=== PATIENT | female | born 1970 | race Caucasian/White ===

== ENCOUNTER → 2018-10-23 | Outpatient (CLI) | payer OTHER ==
[~2018-10-23] MED LIST: ALPR1T PO; CEPH500C PO; CPR250T PO; CYCL10TA9 PO; ESTR1TAB24 PO; HYDR-3456 PO; HYDR-91 PO; MDR10T PO; NAPR-243 PO; NAPR550T PO; OMEP20CA6; ONDAN4ODT PO; OXYC-12 PO; PRD20T PO; VIT1TABL57
--- NOTE | 2018-10-23 10:00 | Diagnostic Imaging Report ---
CLINICAL INDICATION: Patient with chronic back pain and bilateral knee pain. Patient has history of neuropathy. EXAM: X-ray of the right knee, 2 views. COMPARISON: None. FINDINGS: There is no acute fracture or dislocation. A small chronic calcification is seen posterior to the knee which may represent a loose body or soft tissue calcification. A suspected fabella is seen posterior to the knee. There is a small patellar spur involving the superior facet region. There is minimal spurring of the medial compartment. There is mild medial compartment narrowing. There is no significant knee effusion. IMPRESSION: 1. Minimal degenerative changes of the right knee. 2. Possible soft tissue calcifications or loose body involving the posterior aspect of the knee. Dictated by: Dictated on workstation # [id number]
--- NOTE | 2018-10-23 17:21 | Diagnostic Imaging Report ---
INDICATION: Back pain. AP and lateral views of the thoracic spine are obtained. The thoracic vertebrae are normal in height and alignment. There are small osteophytes throughout the wvr-qg-frbis thoracic spine compatible with diffuse degenerative change. There is no compression deformity or subluxation. IMPRESSION: Diffuse degenerative findings in the thoracic spine without acute abnormality. The appearance has not changed from 07/05/2011. Dictated by: Dictated on workstation # [id number]
== END ==
LOC: RAD 09:25
PROVIDERS: ATTEND Family Medicine
DX: Z02.71 Encounter for disability determination (principal); M25.78 Osteophyte, vertebrae; M25.562 Pain in left knee; M25.561 Pain in right knee
CPT/HCPCS: 72070; 73560

== ENCOUNTER 2019-03-02 18:11 | Emergency (ER) | payer MEDICAID, OTHER ==
[~2019-03-02] VITALS: Ht 160 cm; Wt 113.0 kg
--- NOTE | 2019-03-02 19:48 | ED Lower Extremity ---
General Chief Complaint: Lower Extremity Stated Complaint: L LEG BRUISE/KNOT Nursing Triage Note: COMPLAINS OF A BRUISE AND A KNOT ON LEFT LEG. DENIES INJURY. Nursing Sepsis Screen: No Definite Risk Source: patient Exam Limitations: no limitations History of Present Illness Date Seen by Provider: Mar 02, 2019 Time Seen by Provider: 19:47 Initial Comments 48-year-old female patient presents with complaints of bruising to the left lower extremity. Patient denies known injury. She does have a history of neuropathy bilaterally and superficial varicose veins bilaterally and states that it is not uncommon for her to notice bruises without known cause. Reports tenderness at the bruise site only. Onset: yesterday Pain/Injury Location: left other (lateral knee and proximal calf) Method of Injury: unknown Modifying Factors: Worse With Other (tender with palpation) Allergies and Home Medications Allergies Coded Allergies: No Known Drug Allergies (Verified , 10/05/08) Home Medications Alprazolam 1 Mg Tablet, 1 TAB PO HS PRN, (Reported) Cephalexin Monohydrate 500 Mg Capsule, 1 EACH PO QID, (Reported) Ciprofloxacin Hcl 250 Mg Tablet, 1 TAB PO BID, (Reported) Estradiol 1 Mg Tablet, 1 MG PO DAILY, (Reported) Hydrocodone/Acetaminophen 1 Each Tablet, 1 EACH PO Q4H PRN, (Reported) FOR PAIN Ondansetron Hcl 4 Mg Tab, 4 MG PO Q4H, (Reported) Patient Home Medication List Home Medication List Reviewed: Yes Review of Systems Constitutional: no symptoms reported Respiratory: No cough, No dyspnea on exertion, No orthopnea, No short of breath, No stridor, No wheezing Cardiovascular: No chest pain, No edema, No palpitations Gastrointestinal: no symptoms reported Musculoskeletal: see HPI Skin: see HPI Psychiatric/Neurological: Pre-Existing Deficit (neuropathy bilaterally) All Other Systems Reviewed Negative Unless Noted: Yes (Negative excepted noted.) Past Yuvzfaa-Shrnkn-Abmzuz Hx Past Med/Social Hx: Reviewed Nursing Past Med/Soc Hx Patient Social History Alcohol Use: Denies Use Recreational Drug Use: No Smoking Status: Current Everyday Smoker Recent Foreign Travel: No Contact w/Someone Who Travel: No Recent Infectious Disease Expo: No Recent Hopitalizations: Yes (CHILDBIRTH, SEBASTIEN) Past Medical History Surgeries: Yes (SEBASTIEN with BSO 1-3-13, ) Respiratory: No Cardiac: No Neurological: Yes Neuropathy Reproductive Disorders: Yes (FIBROIDS, HEAVY BLEEDING) [employer] History: Hysterectomy Gastrointestinal: No Musculoskeletal: No Endocrine: No Cancer: No Psychosocial: Yes Anxiety Integumentary: No Blood Disorders: No Family Medical History Reviewed Nursing Family Hx No Pertinent Family Hx (denies family history of bleeding disorders or clotting disorders) Physical Exam Vital Signs Vital Signs - First Documented 03/02/19 18:25 Temp 36.7 Pulse 82 Resp 16 B/P (MAP) 133/89 (104) Pulse Ox 98 O2 Delivery Room Air Capillary Refill : Less Than 3 Seconds Height, Weight, BMI Height: '" Weight: lbs. oz. kg; 44.00 BMI Method:Stated General Appearance: WD/WN, no apparent distress Cardiovascular: normal peripheral pulses, regular rate, rhythm, no edema, no gallop, no murmur Respiratory: lungs clear, normal breath sounds, no respiratory distress, no accessory muscle use Hips: bilateral hip non-tender, bilateral hip normal inspection, bilateral hip normal range of motion, bilateral hip no evidence of injury Legs: right leg non-tender; bilateral leg normal range of motion; right leg no evidence of injury; left leg ecchymosis (left proximal lateral calf (see images) ), left leg soft tissue tenderness (left proximal lateral calf (see images)); bilateral leg other (multiple spider varicosities to the bilat lower extremities) Knees: right knee non-tender, right knee normal inspection; bilateral knee normal range of motion; right knee no evidence of injury; left knee ecchymosis (left lateral knee (see images)), left knee soft tissue tenderness (left lateral knee at the site of the ecchymosis) Ankles: bilateral ankle non-tender, bilateral ankle normal inspection, bilateral ankle normal range of motion, bilateral ankle no evidence of injury Feet: bilateral foot non-tender, bilateral foot normal inspection, bilateral foot normal range of motion, bilateral foot no evidence of injury Neurologic/Tendon: normal sensation, normal motor functions, normal tendon functions, responds to pain, no evidence tendon injury Neurologic/Psychiatric: alert, normal mood/affect, oriented x 3 Skin: normal color, warm/dry, ecchymosis (see knee and leg exam above.) Progress/Results/Core Measures Results/Orders Vital Signs/I&O 03/02/19 18:25 Temp 36.7 Pulse 82 Resp 16 B/P (MAP) 133/89 (104) Pulse Ox 98 O2 Delivery Room Air Blood Pressure Mean: 104 Departure Impression Primary Impression: Contusion of leg, left, multiple sites Qualified Codes: S80.12XA - Contusion of left lower leg, initial encounter Additional Impression: Varicose veins of both lower extremities Qualified Codes: I83.93 - Asymptomatic varicose veins of bilateral lower extremities Disposition: 01 HOME, SELF-CARE Condition: Improved Departure-Patient Inst. Decision time for Depature: 20:12 Referrals: [facility]/RODNEY Meza Patient Instructions: Contusion (DC), Varicose Veins (DC) Add. Discharge Instructions: All discharge instructions reviewed with patient and/or family. Voiced understanding. Continue usual home medications. Elevate the left lower extremity on pillows. Ice pack for 20 minute intervals as needed. Nino wrap as instructed. Follow-up with Priti Meza at [facility] for recheck as an outpatient. Return to the emergency department for worsened symptoms or any other concerns. DAGOBERTO STOVER Mar 02, 2019 19:47
[2019-03-02 20:32] VITALS: BP 128/84
== END 2019-03-02 20:33 | disposition home or self-care (01) ==
LOC: EDUNIT# 18:11 → ER 18:13
DX: S80.12XA Contusion of left lower leg, initial encounter (principal); I83.93 Asymptomatic varicose veins of bilateral lower extremities; G62.9 Polyneuropathy, unspecified; F41.9 Anxiety disorder, unspecified; F17.200 Nicotine dependence, unspecified, uncomplicated; Z79.52 Long term (current) use of systemic steroids; Z90.710 Acquired absence of both cervix and uterus; Z90.722 Acquired absence of ovaries, bilateral; X58.XXXA Exposure to other specified factors, initial encounter
CPT/HCPCS: 99281

== ENCOUNTER 2019-07-22 16:41 | Emergency (ER) | payer MEDICAID ==
[~2019-07-22] VITALS: Ht 160 cm; Wt 115.0 kg
--- NOTE | 2019-07-22 16:53 | ED Fall/Injury ---
General Stated Complaint: FALL Source: patient Exam Limitations: no limitations History of Present Illness Date Seen by Provider: July 22, 2019 Time Seen by Provider: 16:40 Initial Comments Patient presents ER by EMS from home with chief complaint of a fall, tripping over a stump in her own front yard. She did not strike her head nor lose consciousness. She's not on blood thinners aspirin or Plavix. She is having pain mostly in her right upper leg between the hip and knee. She says long she does not move her knee does not hurt but if she moves it becomes very painful. She is also having some pain in her right ankle and left hand. She has abrasions on her left face and abrasions on her left knee. She denies nausea, cough, shortness of breath fever chills diarrhea. No bright previous history of back or joint pain/replacement. She follows with Priti Meza at [facility]. She takes blood pressure medications and mood medicines. She says she has a prescription for hydrocodone she can use as necessary for history of neuropathy but she does not use it very frequently. She says her last dose was about for 5 days ago. She does not want anything for pain at this time. EMS established a IV in her left hand and placed her in a c-collar. Allergies and Home Medications Allergies Coded Allergies: No Known Drug Allergies (Verified , 10/05/08) Home Medications Alprazolam 1 Mg Tablet, 1 TAB PO HS PRN, (Reported) Cephalexin Monohydrate 500 Mg Capsule, 1 EACH PO QID, (Reported) Ciprofloxacin Hcl 250 Mg Tablet, 1 TAB PO BID, (Reported) Estradiol 1 Mg Tablet, 1 MG PO DAILY, (Reported) Hydrocodone/Acetaminophen 1 Each Tablet, 1 EACH PO Q4H PRN, (Reported) FOR PAIN Ondansetron Hcl 4 Mg Tab, 4 MG PO Q4H, (Reported) Patient Home Medication List Home Medication List Reviewed: Yes Review of Systems Review of Systems Constitutional: No chills, No diaphoresis Eyes: Denies Blindness, Denies Drainage Ears, Nose, Mouth, Throat: denies ear pain, denies ear discharge Respiratory: No cough, No short of breath Cardiovascular: No edema, No syncope, No vascular heart diseas Gastrointestinal: No abdominal pain, No constipation, No diarrhea Genitourinary: No discharge, No dysuria Musculoskeletal: see HPI; No back pain; joint pain Skin: see HPI Psychiatric/Neurological: Denies Anxiety, Denies Depressed Past Ttcrsju-Lasvuz-Hhdqsn Hx Patient Social History Alcohol Use: Denies Use Recreational Drug Use: No Smoking Status: Current Everyday Smoker Type Used: Cigarettes Recent Hopitalizations: Yes (CHILDBIRTH, SEBASTIEN) Past Medical History Surgeries: Yes (SEBASTIEN with BSO 1-3-13, ) Respiratory: No Cardiac: No Neurological: Yes Neuropathy Reproductive Disorders: Yes (FIBROIDS, HEAVY BLEEDING) [employer] AND FORMER History: Hysterectomy Gastrointestinal: No Musculoskeletal: No Endocrine: No Cancer: No Psychosocial: Yes Anxiety Integumentary: No Blood Disorders: No Family Medical History No Pertinent Family Hx Physical Exam Vital Signs Vital Signs - First Documented 07/22/19 16:44 Temp 37.5 Pulse 91 Resp 18 B/P (MAP) 186/94 (124) Pulse Ox 98 O2 Delivery Room Air Capillary Refill : Height, Weight, BMI Height: '" Weight: lbs. oz. kg; 44.00 BMI Method:Stated General Appearance: WD/WN, mild distress HEENT: PERRL/EOMI, normal ENT inspection, TMs normal, pharynx normal Neck: non-tender, supple, other (C-collar in place) Cardiovascular: normal peripheral pulses, regular rate, rhythm Respiratory: lungs clear, normal breath sounds, no respiratory distress, no accessory muscle use Peripheral Pulses: 2+ Radial Pulses (R), 2+ Radial Pulses (L) Gastrointestinal: normal bowel sounds, non tender, soft Back: normal inspection, no vertebral tenderness Extremities: normal inspection (minor 1 cm radius abrasions anterior bilateral knees), normal capillary refill, other (pain on flexion of the right hip and knee. Tenderness over the fifth metacarpal with a decent range of motion lacking about 15-20% of flexion of the fifth digit. Mild swelling.) Neurologic/Psychiatric: alert, normal mood/affect Mana Coma Score Best Eye Response: (4) Open Spontaneously Best Verbal Response: (5) Oriented Best Motor Response: (6) Obeys Commands [place] Total: 15 Progress/Results/Core Measures Results/Orders Lab Results Laboratory Tests Test 07/22/19 18:02 Range/Units My Orders Orders - CELESTE MOSS Ct Head/Face/Cervical Wo (07/22/19 16:49) Hand, Left, 3 Views (07/22/19 16:49) Knee, Right, 3 Views (07/22/19 16:49) Ankle, Right, 3 Views (07/22/19 16:49) Hip, Right, 2 Views (07/22/19 16:49) Ua Culture If Indicated (07/22/19 17:59) Vital Signs/I&O 07/22/19 16:44 Temp 37.5 Pulse 91 Resp 18 B/P (MAP) 186/94 (124) Pulse Ox 98 O2 Delivery Room Air Progress Progress Note #1: Time: 17:24 Progress Note The patient is declining anything for pain. Because of her difficult examination of the right lower extremity Not wanting to move it secondary to pain we have elected to x-ray the hip, knee and ankle. Because of her pain in her fifth metacarpal on examination we have elected to get a x-ray of the left hand. CT of the head neck and face. Progress Note #2: Time: 17:42 Progress Note C-collar cleared quickly and radiographically. Patient having some minor muscle spasms in her neck and back. Plan to give her cyclobenzaprine and encourage Tylenol and ibuprofen. Diagnostic Imaging Diagonstic Imaging: CT (without IV contrast) Plain Films/CT/US/NM/MRI: facial bones, c-spine, head Comments NAME: NYASIA HERRERA [facility] REC#: [id number] PT STATUS: REG ER : 1970 PHYSICIAN: CELESTE MOSS MD ADMIT DATE: 07/22/19/ER Draft Date of Exam:07/22/19 CT HEAD/FACE/CERVICAL WO PROCEDURE: CT head, face, and cervical spine without contrast. TECHNIQUE: Multiple contiguous axial images were obtained through the head, neck, and facial bones without the use of intravenous contrast. Sagittal and coronal reformations through the cervical spine and facial bones were also performed. Auto Exposure Controls were utilized during the CT exam to meet ALARA standards for radiation dose reduction. INDICATION: Fall with head, face and neck injuries. COMPARISON: No prior studies are available for comparison. CT HEAD: Ventricles and sulci are within normal limits. No sulcal effacement or midline shift is identified. No acute intra-axial or extra-axial hemorrhage is detected. Cisterns are patent. Visualized paranasal sinuses are clear. IMPRESSION: No acute intracranial process is detected. CT CERVICAL SPINE: Alignment is normal. No fracture or subluxation is identified. Odontoid is intact. IMPRESSION: No acute bony abnormality is detected. CT FACE: The mandible appears intact. The zygomatic arches are intact. The maxillary sinus iyer as well as the nasal bones and orbital iyer appear to be intact. No fractures are seen. The visualized paranasal sinuses are clear. IMPRESSION: No facial bone fracture is identified. Dictated on workstation # [id number] Dict: 07/22/19 1728 Trans: 07/22/19 1735 [facility] [id number] Interpreted by: FRANCK MURO MD Electronically signed by: Reviewed: Reviewed by Tn Diagonstic Imaging: Xray Plain Films/CT/US/NM/MRI: pelvis (right), hip (right) Comments NAME: NYASIA HERRERA [facility] REC#: [id number] PT STATUS: REG ER : 1970 PHYSICIAN: CELESTE MOSS MD ADMIT DATE: 07/22/19/ER Draft Date of Exam:07/22/19 HIP, RIGHT, 2 VIEWS INDICATION: Fall. FINDINGS: There is mild right hip osteoarthritic joint space narrowing with some minimal acetabular subchondral sclerosis. There is no proximal femoral fracture evident. Morphology of the femoral head appears appropriate. The visualized portion of the pelvic ring appears intact. IMPRESSION: 1. Mild right hip osteoarthritic changes without dislocation or acute fracture. Dictated on workstation # [id number] Dict: 07/22/19 1758 Trans: 07/22/19 180[facility] [id number] Interpreted by: MARSHA OLIVO MD Electronically signed by: Reviewed: Reviewed by Tn Diagonstic Imaging: Xray Plain Films/CT/US/NM/MRI: knee (right) Comments [facility] [place] NAME: NYASIA HERRERA [facility] REC#: [id number] PT STATUS: REG ER : 1970 PHYSICIAN: CELESTE MOSS MD ADMIT DATE: 07/22/19/ER Draft Date of Exam:07/22/19 KNEE, RIGHT, 3 VIEWS INDICATION: Fall. FINDINGS: Mild osteoarthritic changes present within the right knee with mild joint space loss and osteophytes within the medial and patellofemoral compartments. There are no findings of an acute fracture. There is no suspicious bone lesion. There is no significant knee joint effusion. IMPRESSION: 1. No evidence of malalignment, fracture, or joint effusion. 2. Mild osteoarthritic changes within the medial and patellofemoral compartments. Dictated on workstation # [id number] Dict: 07/22/191756 Trans: 07/22/19 1800 Interpreted by: MARSHA OLIVO MD Electronically signed by: Reviewed: Reviewed by Tn Diagonstic Imaging: Xray Plain Films/CT/US/NM/MRI: ankle (right) Comments [facility] [place] NAME: NYASIA HERRERA [facility] REC#: [id number] PT STATUS: REG ER : 1970 PHYSICIAN: CELESTE MOSS MD ADMIT DATE: 07/22/19/ER Draft Date of Exam:07/22/19 ANKLE, RIGHT, 3 VIEWS EXAM: Right ankle series INDICATION: Fall. FINDINGS: There appears to be mild soft tissue swelling about the ankle. The distal fibula demonstrates no cortical disruption. Distal tibia demonstrates minimal spurring at the medial malleolus. There is no acute tibial fracture. There is no widening of the ankle mortise. The talar dome with normal morphology. The bones of the hindfoot demonstrated a plantar calcaneal spur. IMPRESSION: 1. Mild degenerative features of the right ankle. Soft tissue swelling present. No acute fracture or traumatic malalignment demonstrated. Dictated on workstation # [id number] Dict: 07/22/191756 Trans: 07/22/19 1801 [facility] Interpreted by: MARSHA OLIVO MD Electronically signed by: Reviewed: Reviewed by Tn Diagonstic Imaging: Xray Plain Films/CT/US/NM/MRI: hand (left) Comments NAME: ROMÁN HERRERAJERAMY Sharma [facility] REC#: [id number] PT STATUS: REG ER : 1970 PHYSICIAN: CELESTE MOSS MD ADMIT DATE: 07/22/19/ER Draft Date of Exam:07/22/19 KNEE, RIGHT, 3 VIEWS INDICATION: Fall. FINDINGS: Mild osteoarthritic changes present within the right knee with mild joint space loss and osteophytes within the medial and patellofemoral compartments. There are no findings of an acute fracture. There is no suspicious bone lesion. There is no significant knee joint effusion. IMPRESSION: 1. No evidence of malalignment, fracture, or joint effusion. 2. Mild osteoarthritic changes within the medial and patellofemoral compartments. Dictated on workstation # [id number] Dict: 07/22/19 1757 Trans: 07/22/19 1800 [id number] Interpreted by: MARSHA OLIVO MD Electronically signed by: Reviewed: Reviewed by Me Departure Impression Primary Impression: Fall Qualified Codes: W19.XXXA - Unspecified fall, initial encounter Additional Impressions: Abrasion Cervical paraspinous muscle spasm Disposition: HOME, SELF-CARE Condition: Stable Departure-Patient Inst. Decision time for Depature: 18:17 Referrals: NO,LOCAL PHYSICIAN (PCP/Family) Primary Care Physician Patient Instructions: Preventing Falls, Skin Abrasions (DC) Add. Discharge Instructions: Tylenol 1000 mg every 8 hours as needed for pain. Ibuprofen 800 mg every 8 hours as needed for pain. Topical creams such as icy hot or Biofreeze can be helpful. Flexeril one tablet every 8 hours as needed for muscle spasms. This will cause drowsiness and should not be mixed with alcohol or opiates such as hydrocodone. Expect to be more sore over the next 2 days. Expect to be improving over the next 1-2 weeks. Keep your abrasions clean with regular soap and water. Scripts Cyclobenzaprine HCl (Cyclobenzaprine HCl) 10 Mg Tablet 10 MG PO Q8H PRN for SPASMS, #15 TAB 0 Refills Prov: CELESTE MOSS 07/22/19 CELESTE MOSS July 22, 2019 16:53
--- NOTE | 2019-07-22 17:10 | NUR ---
TO CT PER CART
--- NOTE | 2019-07-22 17:35 | Diagnostic Imaging Report ---
PROCEDURE: CT head, face, and cervical spine without contrast. TECHNIQUE: Multiple contiguous axial images were obtained through the head, neck, and facial bones without the use of intravenous contrast. Sagittal and coronal reformations through the cervical spine and facial bones were also performed. Auto Exposure Controls were utilized during the CT exam to meet ALARA standards for radiation dose reduction. INDICATION: Fall with head, face and neck injuries. COMPARISON: No prior studies are available for comparison. CT HEAD: Ventricles and sulci are within normal limits. No sulcal effacement or midline shift is identified. No acute intra-axial or extra-axial hemorrhage is detected. Cisterns are patent. Visualized paranasal sinuses are clear. IMPRESSION: No acute intracranial process is detected. CT CERVICAL SPINE: Alignment is normal. No fracture or subluxation is identified. Odontoid is intact. IMPRESSION: No acute bony abnormality is detected. CT FACE: The mandible appears intact. The zygomatic arches are intact. The maxillary sinus iyer as well as the nasal bones and orbital iyer appear to be intact. No fractures are seen. The visualized paranasal sinuses are clear. IMPRESSION: No facial bone fracture is identified. Dictated by: Dictated on workstation # [id number]
--- NOTE | 2019-07-22 18:00 | Diagnostic Imaging Report ---
INDICATION: Fall. FINDINGS: Mild osteoarthritic changes present within the right knee with mild joint space loss and osteophytes within the medial and patellofemoral compartments. There are no findings of an acute fracture. There is no suspicious bone lesion. There is no significant knee joint effusion. IMPRESSION: 1. No evidence of malalignment, fracture, or joint effusion. 2. Mild osteoarthritic changes within the medial and patellofemoral compartments. Dictated by: Dictated on workstation # [id number]
--- NOTE | 2019-07-22 18:00 | NUR ---
AMB TO [facility]
--- NOTE | 2019-07-22 18:01 | Diagnostic Imaging Report ---
EXAM: Right ankle series INDICATION: Fall. FINDINGS: There appears to be mild soft tissue swelling about the ankle. The distal fibula demonstrates no cortical disruption. Distal tibia demonstrates minimal spurring at the medial malleolus. There is no acute tibial fracture. There is no widening of the ankle mortise. The talar dome with normal morphology. The bones of the hindfoot demonstrated a plantar calcaneal spur. IMPRESSION: 1. Mild degenerative features of the right ankle. Soft tissue swelling present. No acute fracture or traumatic malalignment demonstrated. Dictated by: Dictated on workstation # [id number]
--- NOTE | 2019-07-22 18:02 | Diagnostic Imaging Report ---
INDICATION: Fall. FINDINGS: There is mild right hip osteoarthritic joint space narrowing with some minimal acetabular subchondral sclerosis. There is no proximal femoral fracture evident. Morphology of the femoral head appears appropriate. The visualized portion of the pelvic ring appears intact. IMPRESSION: 1. Mild right hip osteoarthritic changes without dislocation or acute fracture. Dictated by: Dictated on workstation # [id number]
--- NOTE | 2019-07-22 18:06 | Diagnostic Imaging Report ---
EXAM: Left hand series INDICATION: Fall. Left hand pain. FINDINGS: Alignment of the hand appears appropriate. There are no findings of joint dislocation. There is no evidence of cortical disruption to suggest acute fracture. There is no suspicious bone lesion. Mild arthritic changes are present at the 1st carpometacarpal joint and 1st metacarpophalangeal joint. IMPRESSION: 1. Mild arthritic changes within the left thumb. No acute fracture or malalignment demonstrated. Dictated by: Dictated on workstation # [id number]
[2019-07-22 18:11] LABS: BILIRUBIN,URINE NEGATIVE (NEGATIVE); CLARITY,URINE CLEAR; COLOR,URINE YELLOW; GLUCOSE, URINE (UA) NEGATIVE (NEGATIVE); KETONES,URINE NEGATIVE (NEGATIVE); LEUKOCYTE ESTERASE ,URINE NEGATIVE (NEGATIVE); NITRITE,URINE NEGATIVE (NEGATIVE); PROTEIN,URINE NEGATIVE (NEGATIVE)
[2019-07-22 18:17] LABS: BACTERIA,URINE TRACE /HPF; RBC,URINE 0-2 /HPF; SQUAMOUS EPITHELIAL CELL,UR 0-2 /HPF; WBC,URINE RARE /HPF
[2019-07-22] MEDS ORDERED: CYCL10TA9 PO (18:19)
[2019-07-22 18:21] VITALS: BP 163/90
--- NOTE | 2019-07-22 18:21 | NUR ---
PATIENT DECLINED PAIN MEDS WHILE HER STAY IN ER.
--- OUTSIDE RECORDS SUMMARY | 2019-07-22 20:12 | XMS REPORT | Continuity of Care Document ---
Author Organization Unknown Address Unknown Phone Unavailable Allergies Active Description Code Type Severity Reaction Onset Reported/Identified Relationship to Patient Clinical Status Yes No Known Drug Allergies [id number] Drug Allergy Mild N/A 10/05/2008 Medications There is no data. Problems Date Dx Coded Attending Type Code Diagnosis Diagnosed By 07/29/2009 Ot 708.9 07/29/2009 Ot 782.1 07/05/2011 Ot 846.0 07/05/2011 Ot 847.0 07/05/2011 Ot 847.1 07/05/2011 Ot 924.8 07/05/2011 Ot 959.7 07/05/2011 Ot E000.8 07/05/2011 Ot E001.0 07/05/2011 Ot E849.0 07/05/2011 Ot E880.9 08/20/2011 Ot 625.9 03/10/2012 Ot 218.9 03/10/2012 Ot 625.9 03/10/2012 Ot 626.8 03/22/2012 Ot 041.49 03/22/2012 Ot 276.8 03/22/2012 Ot 300.00 03/22/2012 Ot 305.1 03/22/2012 Ot 557.0 03/22/2012 Ot 560.1 03/22/2012 Ot 568.89 03/22/2012 Ot 599.0 03/22/2012 Ot 997.49 04/09/2014 Ot 625.9 04/09/2014 Ot 626.8 04/09/2014 Ot V76.12 04/09/2014 Ot 218.9 04/09/2014 Ot 625.9 04/09/2014 Ot 626.2 04/09/2014 Ot 218.9 04/09/2014 Ot V72.63 04/09/2014 Ot V74.8 10/29/2018 LUIS SNIDER DO Ot M25.5 61 PAIN IN RIGHT KNEE 10/29/2018 LUIS SNIDER DO Ot M25.5 62 PAIN IN LEFT KNEE 10/29/2018 LUIS SNIDER DO Ot M25.7 8 OSTEOPHYTE, VERTEBRAE 10/29/2018 LUIS SNIDER DO Ot Z02.7 1 ENCOUNTER FOR DISABILITY DETERMINATION 03/02/2019 LUIS SNIDER DO Ot M25.5 61 PAIN IN RIGHT KNEE 03/02/2019 LUIS SNIDER DO Ot M25.5 62 PAIN IN LEFT KNEE 03/02/2019 LUIS SNIDER DO Ot M25.7 8 OSTEOPHYTE, VERTEBRAE 03/02/2019 LUIS SNIDER DO Ot Z02.7 1 ENCOUNTER FOR DISABILITY DETERMINATION Procedures There is no data. Results Test Result Range LIPID PANEL - 12/05/17 08:27 CHOLESTEROL, TOTAL 217 mg/dL <200 HDL CHOLESTEROL 52 mg/dL >50 TRIGLYCERIDES 106 mg/dL <150 LDL-CHOLESTEROL 143 mg/dL (calc) NRG CHOL/HDLC RATIO 4.2 (calc) <5.0 NON HDL CHOLESTEROL 165 mg/dL (calc) <13 0 CMP - 12/05/17 08:27 GLUCOSE 79 mg/dL 65-99 UREA NITROGEN (BUN) 20 mg/dL 7-25 CREATININE 0.83 mg/dL 0.50-1.10 eGFR NON-AFR. CITIZEN OF [place] 83 mL/min/1.73m2 > OR = 60 eGFR 97 mL/min/1.73m2 > OR = 60 BUN/CREATININE RATIO NOT APPLICABLE (calc) 6-22 SODIUM 133 mmol/L 135-146 POTASSIUM 4.3 mmol/L 3.5-5.3 CHLORIDE 96 mmol/L 98-110 CARBON DIOXIDE 27 mmol/L 20-32 CALCIUM 9.3 mg/dL 8.6-10.2 PROTEIN, TOTAL 6.9 g/dL 6.1-8.1 ALBUMIN 3.9 g/dL 3.6-5.1 GLOBULIN 3.0 g/dL (calc) 1.9-3.7 ALBUMIN/GLOBULIN RATIO 1.3 (calc) 1.0-2. 5 BILIRUBIN, TOTAL 0.6 mg/dL 0.2-1.2 ALKALINE PHOSPHATASE 67 U/L 33-115 AST 38 U/L 10-35 ALT 67 U/L 6-29 CBC - 12/05/17 08:27 WHITE BLOOD CELL COUNT 11.6 Thousand/uL 3.8-10.8 RED BLOOD CELL COUNT 4.56 Million/uL 3.8 0-5.10 HEMOGLOBIN 14.7 g/dL 11.7-15.5 HEMATOCRIT 43.3 % 35.0-45.0 MCV 95.0 fL 80.0-100.0 MCH 32.2 pg 27.0-33.0 MCHC 33.9 g/dL 32.0-36.0 RDW 14.0 % 11.0-15.0 PLATELET COUNT 313 Thousand/uL 140-400 MPV 10.3 fL 7.5-12.5 ABSOLUTE NEUTROPHILS 6415 cells/uL 1500- 7800 ABSOLUTE LYMPHOCYTES 4048 cells/uL 850-3 900 ABSOLUTE MONOCYTES 824 cells/uL 200-950 ABSOLUTE EOSINOPHILS 267 cells/uL 15-500 ABSOLUTE BASOPHILS 46 cells/uL 0-200 NEUTROPHILS 55.3 % NRG LYMPHOCYTES 34.9 % NRG MONOCYTES 7.1 % NRG EOSINOPHILS 2.3 % NRG BASOPHILS 0.4 % NRG TSH - 12/05/17 08:27 TSH 0.77 mIU/L NRG PDM - PAIN MGMT (PROFILE 3 WITH CONFIRMA TION) - 01/04/18 13:33 Prescribed Drug 1 Hydrocodone NRG Creatinine 50.4 mg/dL > or = 20.0 pH 6.41 4.5 - 9.0 Oxidant NEGATIVE mcg/mL <200 Amphetamines NEGATIVE ng/mL <500 medMATCH Amphetamines CONSISTENT NRG Benzodiazepines NEGATIVE ng/mL <100 medMATCH Benzodiazepines CONSISTENT NRG Marijuana Metabolite NEGATIVE ng/mL <20 medMATCH Marijuana Metab CONSISTENT NRG Cocaine Metabolite NEGATIVE ng/mL <150 medMATCH Cocaine Metab CONSISTENT NRG Opiates POSITIVE ng/mL <100 Oxycodone NEGATIVE ng/mL <100 medMATCH Oxycodone CONSISTENT NRG COMMENT NRG Codeine NEGATIVE ng/mL <50 medMATCH Codeine CONSISTENT NRG Hydrocodone 105 ng/mL <50 medMATCH Hydrocodone CONSISTENT NRG Hydromorphone NEGATIVE ng/mL <50 medMATCH Hydromorphone CONSISTENT NRG Morphine NEGATIVE ng/mL <50 medMATCH Morphine CONSISTENT NRG Norhydrocodone 106 ng/mL <50 medMATCH Norhydrocodone CONSISTENT NRG CMP - 07/17/18 09:48 GLUCOSE 87 mg/dL 65-99 UREA NITROGEN (BUN) 15 mg/dL 7-25 CREATININE 0.75 mg/dL 0.50-1.10 eGFR NON-AFR. CITIZEN OF [place] 94 mL/min/1.73m2 > OR = 60 eGFR 108 mL/min/1.73m2 > OR = 60 BUN/CREATININE RATIO NOT APPLICABLE (calc) 6-22 SODIUM 131 mmol/L 135-146 POTASSIUM 4.0 mmol/L 3.5-5.3 CHLORIDE 95 mmol/L 98-110 CARBON DIOXIDE 25 mmol/L 20-32 CALCIUM 9.3 mg/dL 8.6-10.2 PROTEIN, TOTAL 6.8 g/dL 6.1-8.1 ALBUMIN 3.9 g/dL 3.6-5.1 GLOBULIN 2.9 g/dL (calc) 1.9-3.7 ALBUMIN/GLOBULIN RATIO 1.3 (calc) 1.0-2. 5 BILIRUBIN, TOTAL 0.5 mg/dL 0.2-1.2 ALKALINE PHOSPHATASE 70 U/L 33-115 AST 45 U/L 10-35 ALT 70 U/L 6-29 HEPATITIS PROFILE - 08/20/18 11:05 HEPATITIS A IGM NON-REACTIVE NON-REACTI VE HEPATITIS B SURFACE ANTIGEN NON-REACTIVE NON-REACTIVE HEPATITIS B CORE ANTIBODY (IGM) NON-REACTIVE NON-REACTIVE HEPATITIS C ANTIBODY NON-REACTIVE NON-R EACTIVE SIGNAL TO CUT-OFF 0.02 <1.00 LIPID PANEL - 08/20/18 11:05 CHOLESTEROL, TOTAL 206 mg/dL <200 HDL CHOLESTEROL 48 mg/dL >50 TRIGLYCERIDES 146 mg/dL <150 LDL-CHOLESTEROL 132 mg/dL (calc) NRG CHOL/HDLC RATIO 4.3 (calc) <5.0 NON HDL CHOLESTEROL 158 mg/dL (calc) <13 0 PDM - PAIN MGMT (PROFILE 3 WITH CONFIRMA TION) - 12/10/18 09:45 Prescribed Drug 1 Hydrocodone NRG Creatinine 30.3 mg/dL > or = 20.0 pH 6.4 4.5-9.0 Oxidant NEGATIVE mcg/mL <200 Amphetamines NEGATIVE ng/mL <500 medMATCH Amphetamines CONSISTENT NRG Benzodiazepines NEGATIVE ng/mL <100 medMATCH Benzodiazepines CONSISTENT NRG Marijuana Metabolite NEGATIVE ng/mL <20 medMATCH Marijuana Metab CONSISTENT NRG Cocaine Metabolite NEGATIVE ng/mL <150 medMATCH Cocaine Metab CONSISTENT NRG Opiates NEGATIVE ng/mL <100 medMATCH Opiates INCONSISTENT NRG Oxycodone NEGATIVE ng/mL <100 medMATCH Oxycodone CONSISTENT NRG COMMENT NRG SPECIMEN INTEGRITY COMPROMISED - 9 09:45 SPECIMEN INTEGRITY COMPROMISED NRG Encounters ACCT No. Visit Date/Time Discharge Status Pt. Type Provider Facility Loc./Unit Complaint [id number] 08/20/2018 10:20:00 08/20/2018 23:59: 59 CLS Outpatient JOSETTE AMBRIZ [facility] [id number] 12/10/2018 09:00:00 Document Registration [id number] 08/20/2018 10:20:00 Document Registration [id number] 07/17/2018 09:20:00 Document Registration [id number] 01/04/2018 12:40:00 Document Registration [id number] 12/05/2017 08:25:00 Document Registration [id number] 03/02/2019 18:13:00 20:33:00 DIS Emergency DAGOBERTO JACOB [facility] ER L LEG BRUISE/KNOT [id number] 10/23/2018 09:25:00 23:59:59 CLS Outpatient LUIS SNIDER DO [facility] RAD DDU [id number] 03/18/2012 13:01:00 Document Registration [id number] 03/07/2012 06:11:00 Document Registration [id number] 03/01/2012 14:30:00 Document Registration [id number] 02/20/2012 14:50:00 Document Registration [id number] 08/30/2011 14:06:00 Document Registration [id number] 08/20/2011 18:42:00 Document Registration [id number] 07/04/2011 22:01:00 Document Registration [id number] 07/29/2009 22:35:00 Document Registration
--- OUTSIDE RECORDS SUMMARY | 2019-07-22 20:12 | XMS REPORT ---
Author Author Lisa AMBRIZ [facility] Address [address] [place] [address] Care Team Providers Care Legal Executive Name Role Phone GOSIA AMBRIZTA Unavailable PROBLEMS Type Condition ICD9-CM Code BCF44-EG Code Onset Dates Condition S tatus SNOMED Code Problem Neuropathy G62.9 Active 822100552 Problem Mixed hyperlipidemia E78.2 Active 082683873 Problem Degenerative disc disease at L5-S1 level M51.36 Active 43306141 Problem Primary osteoarthritis involving multiple joints M 15.0 Active 819325816 Problem Gastroesophageal reflux disease without esophagitis K21.9 Active 819697168 Problem Major depressive disorder, recurrent sev ere without psychotic features F33.2 Active 26134769 Problem Moderate persistent asthma, unspecified whether complicate d J45.40 Active 393200218 Problem Seasonal allergies J30.2 Active 4 14389087 Problem Elevated liver enzymes R74.8 Active 159301622 Problem Essential hypertension I10 Active 99556105 Problem Seasonal allergic rhinitis, unspecified trigger J3 0.2 Active 792390755 Problem Dysthymia F34.1 Active 45286203 Problem Generalized anxiety disorder F41.1 A ctive [id number] ALLERGIES No Information ENCOUNTERS Encounter Location Date Diagnosis [facility] [id number] [place] [address] 17 Apr, 2019 Essential hypertension I10 [facility] [id number] [place] [address] 07 Apr, 2019 Wheezing R06.2 and Degenerative disc dis ease at L5-S1 level M51.36 [facility] [address] [address] Mar, [facility] [address] [address] Mar, Essential hypertension I10 [facility] [id number] [place] [address] 15 Mar, 2019 Viral upper respiratory trac t infection J06.9 [facility] [id number] [place] [address] 08 Mar, 2019 Fever R50.9 and Acute non-re current maxillary sinusitis J01.00 [address] [address] Feb, Essential hypertension I10 [address] [address] Feb, Cough R05 and Seasonal allergies J30.2 [address] [address] Jan, [address] [address] Jan, Seasonal allergies J30.2 ; Cough R05 and Essential hypertension I10 [address] [address] Jan, [facility] [id number] [place] [address] Jan, Bronchitis J40 [address] [place] [address] Jan, Essential hypertension I10 [address] [address] Dec, Essential hypertension I10 [address] [address] Dec, [address] [address] Dec, Primary osteoarthritis involving multipl e joints M15.0 ; Long-term use of high-risk medication Z79.899 ; Degenerative disc disease at L5-S1 level M51.36 ; Muscle spasm M62.838 ; Seasonal allergies J30.2 and Dermatitis L30.9 [address] [place] [address] Dec, Essential hypertension I10 [facility] [address] [address] Nov, Essential hypertension I10 [facility] [address] [address] Oct, Essential hypertension I10 [facility] [address] [address] Oct, Essential hypertension I10 [facility] [address] [address] Sep, Essential hypertension I10 [address] [address] Aug, Mixed hyperlipidemia E78.2 [address] [place] [address] [address] Aug, [facility] [address] [address] Aug, Mixed hyperlipidemia E78.2 ; Need for he patitis C screening test Z11.59 ; Morbid obesity E66.01 ; Degenerative disc disease at L5-S1 level M51.36 and Tobacco abuse Z72.0 [address] [id number] [place] [address] Aug, Essential hypertension I10 [facility] [address] [address] July, Need for hepatitis C screening test Z11. 59 [address] [address] July, Essential hypertension I10 ; Mixed hyper lipidemia E78.2 ; Tobacco abuse Z72.0 ; Wheezing R06.2 and Morbid obesity E66.01 [facility] [address] [facility] [id number] [place] [address] July, Bronchitis J40 [facility] [address] [address] July, Major depressive disorder, recurrent sev ere without psychotic features F33.2 and Generalized anxiety disorder F41.1 [address] [address] [address] Jun, Essential hypertension I10 [address] [address] Jun, [address] [address] Jun, Major depressive disorder, recurrent sev ere without psychotic features F33.2 and Generalized anxiety disorder F41.1 [address] [address] Jun, [address] [address] [address] Jun, Morbid obesity E66.01 ; Essential hypert ension I10 ; Gastroesophageal reflux disease without esophagitis K21.9 ; Degenerative disc disease at L5-S1 level M51.36 ; Dysthymia F34.1 and Seasonal allergic rhinitis, unspecified trigger J30.2 [address] [address] May, Essential hypertension I10 [address] [place] [address] May, [address] [address] Apr, Essential hypertension I10 [address] [address] Mar, Essential hypertension I10 ; Primary ost eoarthritis involving multiple joints M15.0 ; Seasonal allergic rhinitis, unspecified trigger J30.2 and BMI 45.0-49.9, adult Z68.42 [address] [address] [address] Feb, [address] [address] [address] Jan, Degenerative disc disease at L5-S1 level M51.36 [address] [address] Jan, Degenerative disc disease at L5-S1 level M51.36 ; BMI 45.0-49.9, adult Z68.42 ; Long-term use of high-risk medication Z79.899 and Dermatitis L30.9 [address] [address] [address] Dec, Degenerative disc disease at L5-S1 level M51.36 [address] [address] [address] Dec, Mixed hyperlipidemia E78.[address] [address] Dec, Essential hypertension I10 [address] [address] Dec, BMI 45.0-49.9, adult Z68.42 ; Essential hypertension I10 ; Primary osteoarthritis involving multiple joints M15.0 ; Degenerative disc disease at L5-S1 level M51.36 ; Mixed hyperlipidemia E78.2 and Gastroesophageal reflux disease without esophagitis K21.[address] [address] Sep, Essential hypertension I10 ; History of asthma Z87.09 ; Gastroesophageal reflux disease without esophagitis K21.9 ; Primary osteoarthritis involving multiple joints M15.0 and BMI 45.0-49.9, adult Z68.42 [address] [address] Jun, [address] [address] Jun, [address] [address] Jun, [address] [address] May, [address] [address] Apr, [facility] [address] [id number] [place] [address] Apr, [facility] [address] [id number] [place] [address] Apr, [facility] [id number] [place] [address] Apr, [facility] [id number] [place] [address] Apr, [facility] [id number] [place] [address] Mar, [facility] [id number] [place] [address] Mar, [facility] [id number] [place] [address] July, [facility] [id number] [place] [address] Jan, [facility] [id number] [place] [address] Jan, [facility] [id number] [place] [address] Dec, [facility] [id number] [place] [address] Dec, [facility] [id number] [place] [address] Dec, [facility] [id number] [place] [address] Dec, IMMUNIZATIONS No Known Immunizations SOCIAL HISTORY Never Assessed REASON FOR VISIT Controlled Med Refill PLAN OF CARE VITAL SIGNS MEDICATIONS Medication Instructions Dosage Frequency Start Date End Date Duration S leona Hydrocodone-Acetaminophen 5-325 MG Orally Once a day at bedt efren 1 tablet as needed May, 28 days Active RESULTS No Results PROCEDURES No Known procedures INSTRUCTIONS MEDICATIONS ADMINISTERED No Known Medications MEDICAL (GENERAL) HISTORY Type Description Date Medical History HTN-2014 Medical History NEUROPATHY-2015 Medical History TREMORS Medical History ARTHRITIS Medical History OSTEOPOROSIS Medical History Insomnia, unspecified Medical History Counseling on substance use and abuse Surgical History Surgical History tubal ligation Surgical History gall bladder removed Surgical History total hysterectomy Hospitalization History surgery
== END 2019-07-22 18:21 | disposition home or self-care (01) ==
LOC: EDUNIT# 16:41 → ER 16:42
DX: S80.211A Abrasion, right knee, initial encounter (principal); S80.212A Abrasion, left knee, initial encounter; S00.81XA Abrasion of other part of head, initial encounter; M62.838 Other muscle spasm; F41.9 Anxiety disorder, unspecified; R40.2142 Coma scale, eyes open, spontaneous, at arrival to emergency department; R40.2252 Coma scale, best verbal response, oriented, at arrival to emergency department; R40.2362 Coma scale, best motor response, obeys commands, at arrival to emergency department; F17.210 Nicotine dependence, cigarettes, uncomplicated; Z79.52 Long term (current) use of systemic steroids; W01.0XXA Fall on same level from slipping, tripping and stumbling without subsequent striking against object, initial encounter; Y92.007 Garden or yard of unspecified non-institutional (private) residence as the place of occurrence of the external cause
CPT/HCPCS: 70450; 70486; 72125; 73130; 73502; 73562; 73610; 81000

== ENCOUNTER → 2019-10-06 | Outpatient (CLI) | payer MEDICAID ==
--- NOTE | 2019-10-07 12:26 | Diagnostic Imaging Report ---
INDICATION: Routine screening. COMPARISON: 08/30/2011. TECHNIQUE: 2D and 3D bilateral screening mammography was performed with CAD. FINDINGS: Scattered fibroglandular densities are identified bilaterally. The parenchymal pattern is stable. No mass or malignant appearing microcalcifications are seen. The axillae are unremarkable. IMPRESSION: No mammographic features suspicious for malignancy are identified. ACR BI-RADS Category 1: Negative. Result letter will be mailed to the patient. Note: At least 10% of breast cancer is not imaged by mammography. Dictated by: Dictated on workstation # [id number]
== END ==
LOC: RAD 09:45
PROVIDERS: ATTEND Nurse Practitioner
DX: Z12.31 Encounter for screening mammogram for malignant neoplasm of breast (principal)
CPT/HCPCS: 77063; 77067